=== PATIENT | female | born 1950 | race Two or more races ===

== ENCOUNTER → 2021-09-04 | Emergency (ER) | payer OTHER ==
[~2021-09-04] VITALS: Ht 152.4 cm; Wt 65.8 kg
[~2021-09-04] MED LIST: DIGOXIN0.125 MG/2 PO; FORTAMET500 MG PO; LEVOTHYROXINE25 MCG PO; NORVASC5 MG PO; ZESTRIL2.5 MG PO; ZIAC 2.5-6.251 EACH PO
== END | disposition home or self-care (01) ==
LOC: ER 11:10
DX: L03.115 Cellulitis of right lower limb (principal)